=== PATIENT | female | born 1995 | race Caucasian/White ===

== ENCOUNTER 2023-03-31 20:12 | Outpatient (REF) | payer OTHER, SELFPAY ==
[2023-04-07 00:07] LABS: Age Gdln ACOG Testing Note (.); IGP, rfx Aptima HPV ASCU Note (.)
== END 2023-03-31 20:13 | disposition home or self-care (01) ==
LOC: LAB 20:12
PROVIDERS: PCP Family Medicine; Visit Provider Obstetrics & Gynecology
DX: Z01.419 Encounter for gynecological examination (general) (routine) without abnormal findings (principal)
CPT/HCPCS: G0145

== ENCOUNTER 2023-06-05 12:39 | Outpatient (OUT) | payer OTHER, SELFPAY ==
--- NOTE | 2023-06-05 13:20 | CA_ITS ---
Patient: ILIR DANIEL Exam Date: 06/05/2023 : 1995 Gender:F Ordering : DR Steve Redd . Admission #: [id number] Family : Order #: [id number] CLICK HERE TO VIEW EXAM ECHOCARDIOGRAM REPORT PROCEDURE: CA ECHO DOPPLER COMPLETE INDICATIONS: CHEST PAIN COMPARISON: None. DESCRIPTION: COMPLETE ECHOCARDIOGRAM Real-time transthoracic echocardiography with 2D, M-mode, spectral and color flow Doppler performed. QUALITY: Technical quality was good. LEFT VENTRICLE: Normal chamber size. Normal left ventricular wall thickness. Normal systolic function. LV EF: Normal left ventricular ejection fraction, (>55%). DIASTOLIC: Normal diastolic function. ATRIAL SEPTUM: Visually appears intact. LEFT ATRIUM: Normal chamber size. RIGHT ATRIUM: Normal chamber size. RIGHT VENTRICLE: Normal chamber size. Normal right ventricular systolic function. TRICUSPID VALVE: Normal mobility and thickness. No stenosis with mild regurgitation. No evidence of pulmonary hypertension. RVSP 24 mmHg MITRAL VALVE: Normal mobility and thickness. No evidence of mitral valve stenosis. There is no mitral annular calcification. Trivial mitral regurgitation. AORTIC VALVE: Normal trileaflet appearance. No visible sclerosis. Normal leaflet mobility. No evidence of aortic valve stenosis. Trivial aortic regurgitation. AORTIC ROOT: Normal diameter and appearance. PULMONIC VALVE: Normal thickness and mobility. No stenosis. No regurgitation. PERICARDIUM: No evidence of pericardial effusion. IVC: Collapses with inspirations. PLEURA: CONCLUSION: 1. Normal ventricular function. LVEF is 55 to 60%. 2. No significant valvular dysfunction. 3. Normal right-sided pressures. 4. No pericardial effusion. Adult Echocardiography Procedure Report Left Ventricle LVEDD (3.7 - 5.6 cm): 5.04 cm LVESD (2.2 - 4.0 cm): 3.22 cm LVIVS thickness (0.6 - 1.2 cm): 0.72 cm LVPW thickness (0.5 - 1.0 cm): 0.80 cm e': 0.22 m/s E - e': 4.59 LVOT Max Gradient: 6.06 mm[Hg] LVOT Area (cm2): 1.23 m/s Peak Velocity (LVOT): 1.23 m/s Mean Velocity (LVOT): 0.88 m/s LVOT Diameter 1.93 cm Left Atrium LA Volume Index (2D A2C): 25.48 ml/m2 Left Atrium Systolic Dimension: 3.84 cm Mitral Valve MV E to A Ratio: 1.79, 1.82 Mitral Valve A-Wave Peak Velocity: 0.56 m/s Mitral Valve E-Wave Peak Velocity: 1.02 m/s Right Ventricle Aorta AO Root Diam: 2.67 cm Ascending Ao Diam: 2.36 cm Aortic Valve AoV Area ([place]): 2.23 cm2, 2.23 cm2 AoV Area (VTI): 2.00 cm2, 2.00 cm2 Peak Velocity(Antegrade Flow): 1.61 m/s Peak Gradient(Antegrade Flow): 10.43 mm[Hg] Mean Velocity(Antegrade Flow): 1.18 m/s Mean Gradient(Antegrade Flow): 6.21 mm[Hg] Velocity Time Integral: 34.52 cm Tricuspid Valve Peak Velocity (Regurgitant Flow): 2.24 m/s, 2.29 m/s Pulmonic Valve Peak Velocity: 1.03 m/s Peak Gradient: 4.27 mm[Hg], 4.19 mm[Hg] Right Atrium Right Atrium Systolic Pressure: 45.98 ml, 45.98 ml Dictated by: Peyman Adhikari M.D. on 06/05/2023 at 17:25 Approved by: Peyman Adhikari M.D. on 06/05/2023 at 17:27
== END 2023-06-05 12:40 | disposition home or self-care (01) ==
LOC: CARD 12:40
PROVIDERS: PCP Family Medicine; Visit Provider Family Medicine
DX: R07.9 Chest pain, unspecified (principal)
CPT/HCPCS: 93306

== ENCOUNTER 2023-07-19 11:28 | Emergency (ER) | payer OTHER, SELFPAY ==
[2023-07-19 11:32] VITALS: BP 161/109; PULSE 97; RESP 18; TEMP 37.2; O2SAT 97; BMI 29.2
--- NOTE | 2023-07-19 11:53 | ECG_ITS ---
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
[2023-07-19 12:15] LABS: Basophils Absolute Auto 0.1 10^3/uL (0.0-0.1); Basophils Percent Auto 0.8 % (0.2-2.0); Eosinophils Absolute Auto 0.1 10^3/uL (0.0-0.7); Eosinophils Percent Auto 1.4 % (0.9-7.0); Hematocrit 41.1 % (36.0-48.0); Hemoglobin 13.2 g/dL (12.0-16.0); Immature Granulocytes Abs Auto 0.02 10^3/uL (0.00-0.03); Immature Granulocytes Pct Auto 0.3 % (0.0-0.5); Lymphocytes Absolute Auto 0.7 10^3/uL (1.2-3.8); Lymphocytes Percent Auto 8.9 % (20.5-60.0); Mean Corpuscular HGB Conc 32.1 g/dL (29.9-35.2); Mean Corpuscular Hemoglobin 27.8 pg (26.7-34.0); Mean Corpuscular Volume 86.7 fL (81.0-99.0); Mean Platelet Volume 10.2 fL (9.5-13.5); Monocytes Absolute Auto 0.4 10^3/uL (0.3-0.8); Monocytes Percent Auto 5.7 % (1.7-12.0); Neutrophils Absolute Auto 6.5 10^3/uL (1.4-6.5); Neutrophils Percent Auto 82.9 % (43.0-75.0); Platelet Count 198 10^3/uL (150-450); Red Blood Count 4.74 10^6/uL (4.20-5.40); Red Cell Distribution Width 12.5 % (11.0-15.0); White Blood Count 7.8 10^3/uL (4.0-11.0)
[2023-07-19 12:23] LABS: Cannabinoid Screen Urine POSITIVE (NEGATIVE); Cocaine Screen Urine NEGATIVE (NEGATIVE); Phencyclidine Screen Urine NEGATIVE (NEGATIVE)
[2023-07-19 12:24] LABS: Amphetamine Screen Urine POSITIVE (NEGATIVE); Barbiturates Screen Urine NEGATIVE (NEGATIVE); Benzodiazepines Screen Urine NEGATIVE (NEGATIVE); Buprenorphine Screen Urine NEGATIVE (NEGATIVE); Methadone Screen Urine NEGATIVE (NEGATIVE); Methamphetamines Screen Urine NEGATIVE (NEGATIVE); Opiate Screen Urine NEGATIVE (NEGATIVE); Oxycodone Screen Urine NEGATIVE (NEGATIVE); Tricyclic Antidepressant Urine NEGATIVE (NEGATIVE)
[2023-07-19 12:25] LABS: HCG Qualitative NEGATIVE (NEGATIVE)
[2023-07-19 12:30] LABS: Alanine Aminotransferase 16 U/L (14-59); Albumin Globulin Ratio 0.9; Albumin Level 3.7 g/dL (3.4-5.0); Alkaline Phosphatase 61 U/L (46-116); Anion Gap 13.8; Aspartate Amino Transferase 12 U/L (15-37); BUN Creatinine Ratio 12.9; Bilirubin Total 1.6 mg/dL (0.2-1.0); Calcium 8.8 mg/dL (8.5-10.1); Carbon Dioxide 28.9 mmol/L (21.0-32.0); Chloride 101 mmol/L (98-107); Estimated GFR (African America >60 (>=60); Estimated GFR (Non-African Ame >60 (>=60); Glucose 90 mg/dL (74-106); Potassium 3.7 mmol/L (3.5-5.1); Sodium 140 mmol/L (136-145); Total Protein 7.7 g/dL (6.4-8.2)
[2023-07-19 12:31] LABS: Acetaminophen <2.0 ug/mL (10.0-30.0); Ethanol <3 mg/dL; Salicylate <2.8 mg/dL (<=19.9)
[2023-07-19 14:32] VITALS: BP 126/88; PULSE 80; RESP 18; O2SAT 98
--- NOTE | 2023-07-19 17:23 | ED.GENADUL1 ---
HPI - General Adult General Chief complaint: Psychiatric Symptoms Stated complaint: SUICIDAL Time Seen by Provider: 07/19/23 11:52 Source: patient Mode of arrival: law enforcement Limitations: no limitations History of Present Illness HPI narrative: The patient presenting to the ER for possible suicidal ideation although it seemed like she was having a fight with her boyfriend when the police presented and she said that the police make her wants to kill herself The patient denies being suicidal in the ER and she does not have any plan She was arguing with her boyfriend the past proper parenting Related Data Allergies Allergy/AdvReac Type Severity Reaction Status Date / Time No Known Drug Allergies Allergy Verified 07/19/23 11:35 Review of Systems ROS Status of ROS 10 or more systems reviewed and unremarkable except as noted in history and below PFS PFS Social History Smoking status: Never smoker Exam Narrative Exam Narrative: Nurses notes and vital signs reviewed and patient is not hypoxic. General: Well-appearing and in no apparent distress. Skin: Warm, dry, no pallor noted. No rash. Head: Normocephalic, atraumatic. Neck: Supple, non-tender. Eye: Pupils are equal, round and EOMI. No scleral icterus. Ears, Nose, Mouth, and Throat: TM are clear, no nasal mucosal hypertrophy. Oral mucosa is moist, no posterior oropharynx erythema, uvula is mid-line Cardiovascular: Regular Rate and Rhythm without murmur, gallop or rub. Respiratory: No accessory muscle use or respiratory distress. Lungs are clear to auscultation, no wheezing, rales or rhonchi Chest Wall: no tenderness Back: No midline thoracic or lumbar vertebral tenderness. No CVA tenderness Musculoskeletal: normal ROM, no calf or popliteal tenderness, no lower extremity edema/swelling GI: Abdomen is soft, non-distended. Normal bowel sounds. No masses appreciated. No tenderness to palpation. No rebound, guarding, or rigidity noted. Neurological: A&O x4. No cranial nerve dysfunction observed. No truncal ataxia. Moves all extremities. Sensation intact. Psychiatric: Cooperative and interactive. Normal mood and affect. Constitutional Vital Signs, click to edit/add: Last Vital Signs Temp 98.9 F 07/19/23 11:32 Pulse 80 07/19/23 14:32 Resp 18 07/19/23 14:32 BP 126/88 07/19/23 14:32 Pulse Ox 98 12/03/23 14:32 O2 Del Method Room Air 07/19/23 11:32 Course Vital Signs Vital signs: Vital Signs Temperature 98.9 F 07/19/23 11:32 Pulse Rate 97 H 07/19/23 11:32 Respiratory Rate 18 07/19/23 11:32 Blood Pressure 161/109 H 07/19/23 11:32 Pulse Oximetry 97 07/19/23 11:32 Oxygen Delivery Method Room Air 07/19/23 11:32 Temperature 98.9 F 07/19/23 11:32 Pulse Rate 80 07/19/23 14:32 Respiratory Rate 18 07/19/23 14:32 Blood Pressure 126/88 07/19/23 14:32 Pulse Oximetry 98 07/19/23 14:32 Oxygen Delivery Method Room Air 07/19/23 11:32 Medical Decision Making MDM Narrative Medical decision making narrative: The patient EKG was showing sinus rhythm with a heart rate of [address] elevation or depression CBC and chemistry showed no acute pathology and the patient was evaluated by psychiatry after she was medically clear Right now the patient is not suicidal she have a friend Kiara who is coming over to spend the time with her The patient was discharged with a safety plan and she was instructed that she will be following up with the [facility] psychiatry as outpatient as well I spoke with the patient and she is agreeable with the plan Patient the patient is to follow up with primary care physician in next 2-3 days or to return to the emergency department should any of the signs or symptoms worsen or new symptoms develop. The patient agrees with the following Diagnosis and Treatment plan and the patient will be discharged home. Lab Data Labs: Lab Results 07/19/23 07/19/23 Range/Units 12:00 12:07 WBC 7.8 (4.0-11.0) 10^3/uL RBC 4.74 (4.20-5.40) 10^6/uL Hgb 13.2 (12.0-16.0) g/dL Hct 41.1 (36.0-48.0) % MCV 86.7 (81.0-99.0) fL MCH 27.8 (26.7-34.0) pg MCHC 32.1 (29.9-35.2) g/dL RDW 12.5 (11.0-15.0) % Plt Count 198 (150-450) 10^3/uL MPV 10.2 (9.5-13.5) fL Neut % (Auto) 82.9 H (43.0-75.0) % Lymph % (Auto) 8.9 L (20.5-60.0) % Sequoyah % (Auto) 5.7 (1.7-12.0) % Eos % (Auto) 1.4 (0.9-7.0) % Baso % (Auto) 0.8 (0.2-2.0) % Neut # (Auto) 6.5 (1.4-6.5) 10^3/uL Lymph # (Auto) 0.7 L (1.2-3.8) 10^3/uL Sequ[place]ah # (Auto) 0.4 (0.3-0.8) 10^3/uL Eos # (Auto) 0.1 (0.0-0.7) 10^3/uL Baso # (Auto) 0.1 (0.0-0.1) 10^3/uL Abs Immat Gran (auto) 0.02 (0.00-0.03) 10^3/uL Imm/Tot Granulo (auto) 0.3 (0.0-0.5) % Sodium 140 (136-145) mmol/L Potassium 3.7 (3.5-5.1) mmol/L Chloride 101 (98-107) mmol/L Carbon Dioxide 28.9 (21.0-32.0) mmol/L Anion Gap 13.8 BUN 12.0 (7.0-18.0) mg/dL Creatinine 0.93 (0.55-1.02) mg/dL Est GFR ( Amer) >60 (>=60) Est GFR (Non-Af Amer) >60 (>=60) BUN/Creatinine Ratio 12.9 Glucose 90 (74-106) mg/dL Calcium 8.8 (8.5-10.1) mg/dL Total Bilirubin 1.6 H (0.2-1.0) mg/dL AST 12 L (15-37) U/L ALT 16 (14-59) U/L Alkaline Phosphatase 61 (46-116) U/L Total Protein 7.7 (6.4-8.2) g/dL Albumin 3.7 (3.4-5.0) g/dL Globulin 4.0 g/dL Albumin/Globulin Ratio 0.9 Serum HCG, Qual Negative (NEGATIVE) Salicylates <2.8 (<=19.9) mg/dL Urine Opiates Screen Negative (NEGATIVE) Ur Buprenorphine Scrn Negative (NEGATIVE) Ur Oxycodone Screen Negative (NEGATIVE) Urine Methadone Screen Negative (NEGATIVE) Acetaminophen <2.0 L (10.0-30.0) ug/mL Ur Barbiturates Screen Negative (NEGATIVE) U Tricyclic Antidepress Negative (NEGATIVE) Ur Phencyclidine Scrn Negative (NEGATIVE) Ur Amphetamines Screen Positive A (NEGATIVE) U Methamphetamines Scrn Negative (NEGATIVE) U Benzodiazepines Scrn Negative (NEGATIVE) Urine Cocaine Screen Negative (NEGATIVE) U Cannabinoids Screen Positive A (NEGATIVE) Ethanol Quant <3 mg/dL Discharge Plan Discharge Chief Complaint: Psychiatric Symptoms Clinical Impression: Stress, Suicidal ideation Patient Disposition: Home, Self-Care Time of Disposition Decision: 14:16 Condition: Good Instructions: Stress (ED), Suicide Prevention (ED) Stand Alone Forms: Portal Instructions Referrals: Steve Redd MD [Primary Care Provider] - 1 week Discharge Date/Time: 07/19/23 14:34
== END 2023-07-19 14:34 | disposition home or self-care (01) ==
PROVIDERS: Emergency Provider Emergency Medicine; PCP Family Medicine
DX: R45.851 Suicidal ideations (principal); F43.9 Reaction to severe stress, unspecified
CPT/HCPCS: 36415; 80053; 80179; 80307; 80320; 80329; 84703; 85025; 93005; 99284

== ENCOUNTER 2023-10-07 10:29 | Outpatient (OUT) | payer OTHER, SELFPAY ==
--- OUTSIDE RECORDS SUMMARY | 2023-10-07 10:33 | XMS_ITS | CCD ---
Author Name Unknown Address [facility] [address] [place] [address] Organization [facility] Care Team Providers Care Fulfillment Specialist Name Role Phone GRACIE KAY Unavailable Unavailable ANITA MERRILL Unavailable Unavailable Emilee Khan Unavailable CRESENCIO Khan Attending Provider Emilee Khan Attending Unavailable Emilee Khan Admitting Unavailable RAHUL, DR BOWMAN Admitting Unavailable RAHUL, DR BOWMAN Attending Unavailable CORNELIAY, DR BOWMAN Primary Care Unavailable RAHUL, DR BOWMAN Consulting Unavailable RAHUL, DR BOWMAN Admitting Unavailable RAHUL, DR BOWMAN Attending Unavailable RAHUL, DR BOWMAN Primary Care Unavailable RAHUL, DR BOWMAN Admitting Unavailable RAHUL, DR BOWMAN Attending Unavailable RAHUL, DR BOWMAN Primary Care Unavailable RAHUL, DR BOWMAN Consulting Unavailable RAHUL, DR BOWMAN Admitting Unavailable RAHUL, DR BOWMAN Attending Unavailable RAHUL, DR BOWMAN Primary Care Unavailable RAHUL, DR BWOMAN Consulting Unavailable RAHUL, DR BOWMAN Admitting Unavailable RAHUL, DR BOWMAN Attending Unavailable HOY, DR BOWMAN Primary Care Unavailable HODR GRACIE Yañez Admitting Unavailable RAHUL, DR BOWMAN Attending Unavailable RAHUL, DR BOWMAN Primary Care Unavailable DR GRACIE KAY Consulting Unavailable RAHUL, DR BOWMAN Admitting Unavailable RAHUL, DR BOWMAN Attending Unavailable RAHUL, DR BOWMAN Primary Care Unavailable RAHUL, DR BOWMAN Consulting Unavailable TYLERDR JACKIE ROSS Admitting Unavailable TYLER, DR MEJIA Attending Unavailable RAHUL, DR BOWMAN Primary Care Unavailable TYLER, DR MEJIA Consulting Unavailable RAHUL, DR BOWMAN Admitting Unavailable RAHUL, DR BOWMAN Attending Unavailable DR GRACIE KAY Primary Care Unavailable DR GRACIE KAY Consulting Unavailable DR GRACIE KAY Admitting Unavailable DR GRACIE KAY Attending Unavailable DR GRACIE KAY Primary Care Unavailable DR GRACIE KAY Consulting Unavailable Medications Current Medications Medication Drug Class(es) Dates Sig (Normalized) Sig (Original) azithromycin 500 mg oral tablet (2 sources) Macrolide Antimicrobial Start: 07-17-2022 take 2 tablets by mouth once Azithromycin 500 MG 2 tablet Orally once for 1 day Jul, Active Levonorgestrel (2 sources) Progestin, Progestin-containin g Intrauterine Device Allegra Active Problems Active Problems Problem Classification Problem Date Documented Da te Episodic/Chronic Cardiac dysrhythmias (4 sources) Bradycardia, unspecified; Translations: [BRADYCARDIA UNSPECIFIED] Onset: 09-02-2022 Episodic Deficiency and other anemia (5 sources) Anemia, unspecified; Translations: [ANEMIA UNSPECIFIED] Onset: 11-18-2021 Episodic Diabetes mellitus without complication (1 source) Other abnormal glucose; Translations: [OTHER ABNORMAL GLUCOSE] Onset: 09-08-2022 Episodic Headache; including migraine (1 source) Migraine, unspecified, not intractable, without status migrainosus; Translations: [MIGRAINE UNS NOT INTRACT W/O SM] Onset: 08-29-2022 Chronic Malaise and fatigue (1 source) Other fatigue; Translations: [OTHER FATIGUE] Onset: 08-29-2022 Episodic Nausea and vomiting (1 source) Nausea; Translations: [Nausea] Onset: 02-10-2018 Episodic Nonspecific chest pain (4 sources) Chest pain, unspecified; Translations: [CHEST PAIN UNSPECIFIED] Onset: 09-19-2022 Episodic Other non-traumatic joint disorders (4 sources) Pain in left knee; Translations: [PAIN IN LEFT KNEE] Onset: 08-27-2022 Episodic Other screening for suspected conditions (not mental disorders or infectious disease) (9 sources) Encounter for screening for malignant neoplasm of rectum; Translations: [Encounter for screening for malignant neoplasm of cervix] Onset: 03-24-2022 Episodic Residual codes; unclassified (4 sources) Idiopathic hypersomnia with long sleep time; Translations: [IDIO HYPERSOMNIA W/LONG SLEEP TIME] Onset: 05-06-2022 Chronic Residual codes; unclassified (4 sources) Obstructive sleep apnea (adult) (pediatric); Translations: [OBSTRUCTIVE SLEEP APNEA] Onset: 04-15-2022 Chronic Residual codes; unclassified (2 sources) High risk heterosexual behavior; Translations: [High risk heterosexual behavior] Onset: 07-17-2022 Episodic Urinary tract infections (1 source) Tubulo-interstitial nephritis, not specified as acute or chronic; Translations: [Tubulo-interstitia l nephritis, not specified as acute or chronic] Onset: 02-10-2018 Episodic Past or Other Problems Problem Classification Problem Date Documented Date Episodic/Chronic Immunizations and screening for infectious disease (1 source) Encounter for screening for human papillomavirus (HPV); Translations: [ENC SCREENING HUMAN PAPILLOMAVIRUS] Onset: 03-26-2022 Episodic Results Test Name Value Interpretation Reference Range Facility ECHOCARDIO M/2D COMPLETEon 0 09-19-2022 ECHOCARDIO M/2D COMPLETE Patient: ILIR DANIEL Exam Date: 09/19/2022 : 1995 Gender:F Ordering : DR GRACIE KAY . Admission #: [id number] Family : Order #: [id number] CLICK HERE TO VIEW EXAM ECHOCARDIOGRAM REPORT PROCEDURE: CARDIO PULMONARY ECHOCARDIO M/2D COMP INDICATIONS: Chest pain COMPARISON: None. DESCRIPTION: COMPLETE ECHOCARDIOGRAM Real-time transthoracic echocardiography with 2D, M-mode, spectral and color flow Doppler performed. QUALITY: Technical quality was good. 65 184# BP 128/82 LEFT VENTRICLE: Normal chamber size. Normal left ventricular wall thickness. Normal systolic function. LV EF: Normal left ventricular ejection fraction, (>55%). DIASTOLIC: Normal diastolic function. ATRIAL SEPTUM: Visually appears intact. LEFT ATRIUM: Normal chamber size. RIGHT ATRIUM: Normal chamber size. RIGHT VENTRICLE: Normal chamber size. Normal right ventricular systolic function. TRICUSPID VALVE: Normal mobility and thickness. No stenosis with trivial regurgitation. No evidence of pulmonary hypertension. RVSP 22 mmHg MITRAL VALVE: Mildly thickened with normal mobility. No evidence of mitral valve stenosis. There is no mitral annular calcification. Trivial mitral regurgitation. AORTIC VALVE: Normal trileaflet appearance. No visible sclerosis. Normal leaflet mobility. No evidence of aortic valve stenosis. No aortic regurgitation. AORTIC ROOT: Normal diameter and appearance. PULMONIC VALVE: Normal thickness and mobility. No stenosis. Trivial regurgitation. PERICARDIUM: No evidence of pericardial effusion. IVC: Collapses with inspirations. IVC is normal in size. PLEURA: CONCLUSION: 1. Normal ventricular function. LVEF is 55 to 60%. 2. No significant valvular dysfunction. 3. Normal right-sided pressures. 4. No critical effusion. Adult Echocardiography Procedure Report Left Ventricle LVEDD (3.7 - 5.6 cm): 5.17 cm LVESD (2.2 - 4.0 cm): 3.46 cm LVIVS thickness (0.6 - 1.2 cm): 0.91 cm LVPW thickness (0.5 - 1.0 cm): 0.68 cm e': 0.19 m/s E - e': 4.66 LVOT Max Gradient: 3.71 mm[Hg] Peak Velocity (LVOT): 0.96 m/s Mean Velocity (LVOT): 0.65 m/s LVOT Diameter 2.15 cm Left Ventricular Ejection Fraction: 55-60 % Left Atrium Left Atrium Systolic Dimension: 3.93 cm Mitral Valve MV E to A Ratio: 3.23 Mitral Valve A-Wave Peak Velocity: 0.27 m/s Mitral Valve E-Wave Peak Velocity: 0.89 m/s Right Ventricle Aorta AO Root Diam: 2.80 cm Aortic Valve AoV Area (Peak Peewee): 2.89 cm2, 2.89 cm2 Peak Velocity(Antegrade Flow): 1.21 m/s Peak Gradient(Antegrade Flow): 5.83 mm[Hg] Tricuspid Valve Peak Velocity (Regurgitant Flow): 2.18 m/s Peak Velocity: 0.74 m/s Pulmonic Valve Mean Gradient: 2.96 mm[Hg], 2.63 mm[Hg] Mean Velocity: 0.81 m/s, 0.75 m/s Peak Velocity: 1.09 m/s, 1.09 m/s Peak Gradient: 4.76 mm[Hg], 4.76 mm[Hg] Right Atrium Right Atrium Systolic Pressure: 41.01 ml, 41.01 ml Dictated by: Peyman Ahdikari M.D. on 2022 at 18:58 Approved by: Peyman Adhikari M.D. on 2022 at 19:01 Normal [facility] INSULINon 09-03-2022 Insulin 7.3 uIU/mL Normal 2.6-24.9 [facility] Comment on above: Performed By: #### I NSULIN #### [facility] [address] [address] [address] Kwasi Roblero CBC AUTO DIFFon 09-02-2022 BASO # 0.1 103/ul Normal 0.0-0.1 [facility] Comment on above: Performed By: #### C BC #### [facility] [address] [place] [address] Dr. Kwasi Roblero Basophils/100 WBC (Bld) 0.9 % Normal 0.2-2.0 [facility] Comment on above: Performed By: #### C BC #### [facility] [address] [place] [address] Dr. Kwasi Roblero EO # 0.2 103/ul Normal 0.0-0.7 [facility] Comment on above: Performed By: #### C BC #### [facility] [address] [place] [address] Dr. Kwasi Roblero Eosinophils/100 WBC (Bld) 2.3 % Normal 0.9-7.0 [facility] Comment on above: Performed By: #### C BC #### [facility] [address] [place] [address] Dr. Kwasi Roblero Erythrocyte distribution width (RBC) [Ratio] 12.6 % Normal 11.0-15.0 [facility] Comment on above: Performed By: #### C BC #### [facility] [address] [place] [address] Dr. Kwasi Roblero Hematocrit (Bld) [Volume fraction] 39.3 % Normal 36.0-48.0 [facility] Comment on above: Performed By: #### C BC #### [facility] [address] [place] [address] Dr. Kwasi Roblero Hemoglobin (Bld) [Mass/Vol] 12.7 g/dL Normal 12.0-16.0 [facility] Comment on above: Performed By: #### C BC #### [facility] [address] [place] [address] Dr. Kwasi Roblero IG # 0.01 10e3/ul Normal 0.00-0.03 [facility] Comment on above: Performed By: #### C BC #### [facility] [address] [place] [address] Dr. Kwasi Roblero IG % 0.1 % Normal 0.0-0.5 [facility] Comment on above: Performed By: #### C BC #### [facility] [address] [place] [address] Dr. Kwasi Roblero LYMPH # 1.8 103/ul Normal 1.2-3.8 [facility] Comment on above: Performed By: #### C BC #### [facility] [address] [place] [address] Dr. Kwasi Roblero Lymphocytes/100 WBC (Bld) 25.9 % Normal 20.5-60.0 [facility] Comment on above: Performed By: #### C BC #### [facility] [address] [place] [address] Dr. Kwasi Roblero MANUAL DIFF REQ NO Normal [facility] Comment on above: Performed By: #### C BC #### [facility] [address] [place] [address] Dr. Kwasi Roblero MCH (RBC) [Entitic mass] 27.0 pg Normal 26.7-34.0 [facility] Comment on above: Performed By: #### C BC #### [facility] [address] [place] [address] Dr. Kwasi Roblero MCHC (RBC) [Mass/Vol] 32.3 g/dL Normal 29.9-35.2 [facility] Comment on above: Performed By: #### C BC #### [facility] [address] [place] [address] Dr. Kwasi Roblero MCV (RBC) [Entitic vol] 83.4 fL Normal 81.0-99.0 [facility] Comment on above: Performed By: #### C BC #### [facility] [address] [place] [address] Dr. Kwasi Roblero MONO # 0.7 103/ul Normal 0.3-0.8 [facility] Comment on above: Performed By: #### C BC #### [facility] [address] [address] [address] Kwasi Roblero Monocytes/100 WBC (Bld) 9.5 % Normal 1.7-12.0 [facility] Comment on above: Performed By: #### C BC #### [facility] [address] [address] [address] Kwasi Roblero NEUT # 4.2 103/ul Normal 1.4-6.5 [facility] Comment on above: Performed By: #### C BC #### [facility] [address] [place] [address] Dr. Kwasi Roblero Neutrophils/100 WBC (Bld) 61.3 % Normal 43.0-75.0 [facility] Comment on above: Performed By: #### C BC #### [facility] [address] [place] [address] Dr. Kwasi Roblero Platelet mean volume (Bld) [Entitic vol] 10.8 fL Normal 9.5-13.5 [facility] Comment on above: Performed By: #### C BC #### [facility] [address] [place] [address] Dr. Kwasi Roblero PLT 240 103/ul Normal 150-450 [facility] Comment on above: Performed By: #### C BC #### [facility] [address] [place] [address] Dr. Kwasi Roblero RBC 4.71 106/ul Normal 4.20-5.40 [facility] Comment on above: Performed By: #### C BC #### [facility] [address] [place] [address] Dr. Kwasi Roblero WBC 6.9 103/ul Normal 4.0-11.0 [facility] Comment on above: Performed By: #### C BC #### [facility] [address] [place] [address] Dr. Kwasi Roblero FREE THYROXINE INDEX T7on FTI 2.80 Normal 1.30-4.50 [facility] Comment on above: Performed By: #### T SH, LIPID, T7, CMP ####[facility] [address] [place], [place] [address]VxErica Roblero T3U 35.0 % Normal 30.0-39.0 [facility] Comment on above: Performed By: #### T SH, LIPID, T7, CMP ####[facility] [address] [place], [place] [address]MsErica Roblero T4 [Mass/Vol] 8.00 ug/dL Normal 4.80-13.90 [facility] Comment on above: Performed By: #### T SH, LIPID, T7, CMP ####[facility] [address] [place], [place] [address]JjErica Roblero GLYCOHEMOGLOBIN A1Con 2022 ADA RECOMMENDATION SEE BELOW Normal [facility] Comment on above: Result Comment: ADA RECOMMENDED LIMIT 4.0 - 6.0 ADA THERAPEUTIC TARGET < 7.0 ACTION SUGGESTED > 7.0 Performed By: #### A 1C #### [facility] [address] [address] [address] Kwasi Roblero Glucose [Mass/Vol] 94 mg/dL Normal [facility] Comment on above: Performed By: #### A 1C #### [facility] [address] [address] [address] Kwasi Roblero HbA1c (Bld) [Mass fraction] 4.9 % Normal 4.5-6.2 [facility] Comment on above: Performed By: #### A 1C #### [facility] [address] [address] [address] Kwasi Roblero IRONon 09-02-2022 Iron [Mass/Vol] 47.0 ug/dL Critically low 50.0-170.0 [facility] Comment on above: Performed By: #### I EDUARD ####[facility] [address] [address]Dr. Kwasi Roblero LIPID PROFILEon 09-02-2022 CHOL-HDL RATIO NORM SEE BELOW Normal [facility] Comment on above: Result Comment: 3.3 - 4.4 LOW RISK 4.4 - 7.1 AVERAGE RISK 7.1 - 11.0 MODERATE RISK >11.0 HIGH RISK Performed By: #### T SH, LIPID, T7, CMP ####[facility] [address] [id number] Kwasi Roblero Cholesterol [Mass/Vol] 129 mg/dL Normal <=200 [facility] Comment on above: Performed By: #### T SH, LIPID, T7, CMP ####[facility] [address] [id number][address] Kwasi Roblero Cholesterol in HDL [Mass/Vol] 36 mg/dL Critically low 40-60 [facility] Comment on above: Performed By: #### T SH, LIPID, T7, CMP ####[facility] [address] [address]Dr. Kwasi Roblero Cholesterol in LDL [Mass/Vol] 79.2 mg/dL Normal [facility] Comment on above: Performed By: #### T SH, LIPID, T7, CMP ####[facility] [id number] [address]Dr. Kwasi Roblero Cholesterol.total/Cho lesterol in HDL [Mass ratio] 3.6 {ratio} Normal [facility] Comment on above: Performed By: #### T SH, LIPID, T7, CMP ####[facility] [address] [address]Dr. Kwasi Roblero HDL NORMAL > or = 60 mg/dl - LO W CARDIOVASCULAR RISK <40 mg/dl - HIGH CARDIOVASCULAR RISK Normal [facility] Comment on above: Performed By: #### T SH, LIPID, T7, CMP ####[facility] [address] [address]Dr. Kwasi Roblero LDL CALC NORMAL SEE BELOW Normal [facility] Comment on above: Result Comment: <100 mg/dl OPTIMAL 100 - 129 mg/dl NEAR OR ABOVE OPTIMAL 130 - 159 mg/dl BORDERLINE HIGH 160 - 189 mg/dl HIGH >190 mg/dl VERY HIGH Performed By: #### T SH, LIPID, T7, CMP ####[facility] [address] [address]Dr. Kwasi Roblero Triglyceride [Mass/Vol] 69 mg/dL Normal <=150 [facility] Comment on above: Performed By: #### T SH, LIPID, T7, CMP ####[facility] [address] [place], [place] [address]OhDr. Kwasi Roblero VLDL CALC 13.8 mg/dL Normal [facility] Comment on above: Performed By: #### T SH, LIPID, T7, CMP ####[facility] [address] [id number] Kwasi Roblero PROF 14(COMP METB)on 023 Albumin [Mass/Vol] 3.8 g/dL Normal 3.4-5.0 [facility] Comment on above: Performed By: #### T SH, LIPID, T7, CMP #### [facility] [address] [address] [address] Kwasi Roblero Albumin/Globulin [Mass ratio] 0.9 {ratio} Normal [facility] Comment on above: Performed By: #### T SH, LIPID, T7, CMP #### [facility] [address] [address] [address] Kwasi Roblero ALP [Catalytic activity/Vol] 64 U/L Normal 46-116 [facility] Comment on above: Performed By: #### T SH, LIPID, T7, CMP #### [facility] [address] [address] [address] Kwasi Roblero ALT [Catalytic activity/Vol] 17 U/L Normal 14-59 [facility] Comment on above: Performed By: #### T SH, LIPID, T7, CMP #### [facility] [address] [address] [address] Kwasi Roblero Anion gap [Moles/Vol] 11.6 mmol/L Normal [facility] Comment on above: Performed By: #### T SH, LIPID, T7, CMP #### [facility] [address] [address] [address] Kwasi Roblero AST [Catalytic activity/Vol] 14 U/L Critically low 15-37 [facility] Comment on above: Performed By: #### T SH, LIPID, T7, CMP #### [facility] [address] [address] [address] Kwasi Roblero Bilirubin [Mass/Vol] 1.0 mg/dL Normal 0.2-1.0 [facility] Comment on above: Performed By: #### T SH, LIPID, T7, CMP #### [facility] [address] [address] [address] Kwasi Roblero Calcium [Mass/Vol] 9.1 mg/dL Normal 8.5-10.1 [facility] Comment on above: Performed By: #### T SH, LIPID, T7, CMP #### [facility] [address] [place] [address] Dr. Kwasi Roblero Chloride [Moles/Vol] 105 mmol/L Normal 98-107 [facility] Comment on above: Performed By: #### T SH, LIPID, T7, CMP #### [facility] [address] [place] [address] Dr. Kwasi Roblero CO2 [Moles/Vol] 30.3 mmol/L Normal 21.0-32.[address] [facility] Comment on above: Performed By: #### T SH, LIPID, T7, CMP #### [facility] [address] [place] [address] Dr. Kwasi Roblero Creatinine [Mass/Vol] 0.87 mg/dL Normal 0.55-1.02 [facility] Comment on above: Performed By: #### T SH, LIPID, T7, CMP #### [facility] [address] [place] [address] Dr. Kwasi Roblero EGFR-AF CYMRO >60 Normal >=[address] [facility] Comment on above: Performed By: #### T SH, LIPID, T7, CMP #### [facility] [address] [place] [address] Dr. Kwasi Roblero EGFR-NON AF CYMRO >60 Normal >=60 [facility] Comment on above: Performed By: #### T SH, LIPID, T7, CMP #### [facility] [address] [place] [address] Dr. Kwasi Roblero Globulin (S) [Mass/Vol] 4.2 g/dL Normal [facility] Comment on above: Performed By: #### T SH, LIPID, T7, CMP #### [facility] [address] [address] [address] Kwasi Roblero Glucose [Mass/Vol] 88 mg/dL Normal 74-106 [facility] Comment on above: Performed By: #### T SH, LIPID, T7, CMP #### [facility] [address] [address] [address] Kwasi Roblero Potassium [Moles/Vol] 3.9 mmol/L Normal 3.5-5.1 [facility] Comment on above: Performed By: #### T SH, LIPID, T7, CMP #### [facility] [address] [address] [address] Kwasi Roblero Protein [Mass/Vol] 8.0 g/dL Normal 6.4-8.2 [facility] Comment on above: Performed By: #### T SH, LIPID, T7, CMP #### [facility] [address] [address] [address] Kwasi Roblero Sodium [Moles/Vol] 143 mmol/L Normal 136-145 [facility] Comment on above: Performed By: #### T SH, LIPID, T7, CMP #### [facility] [address] [address] [address] Kwasi Roblero Urea nitrogen [Mass/Vol] 10.0 mg/dL Normal 7.0-18.0 [facility] Comment on above: Performed By: #### T SH, LIPID, T7, CMP #### [facility] [address] [address] [address] Kwasi Roblero Urea nitrogen/Creatinine [Mass ratio] 11.5 mg/mg Normal [facility] Comment on above: Performed By: #### T SH, LIPID, T7, CMP #### [facility] [address] [address] [address] Kwasi Roblero TSHon 09-02-2022 TSH 1.776 uIU/mL Normal 0.358-3.740 [facility] Comment on above: Performed By: #### T SH, LIPID, T7, CMP ####[facility] [address] [address]DrErica Roblero OCC BLD IMMUNO SCREENon OCCULT BLOOD Negative Normal NEGATIVE [facility] Comment on above: Performed By: #### O BSCRN #### [facility] [address] [place], [place] [address] Dr. Kwasi Roblero Chlamydia/GC/Trich NAAon Chlamydia Trachomotis, MACRINA Negative Normal Negative [facility] Comment on above: Order Comment: Reaso n for Exam High risk sexual behavior, unspecified type Performed By: #### G CCHLAMTRI #### [facility] , Neisseria Gonorrhoeae, MACRINA Negative Normal Negative [facility] Comment on above: Order Comment: Reaso n for Exam High risk sexual behavior, unspecified type Performed By: #### G CCHLAMTRI #### [facility] , Trichomonas MACRINA Negative Normal Negative [facility] Comment on above: Order Comment: Reaso n for Exam High risk sexual behavior, unspecified type Result Comment: Perf ormed at: =G - [facility] [address] [id number] Bill Checker: Mariana Castro MD, Phone: [phone] PERFORMED BY: [facility] [address] [place] [address] PATHOLOGIST SCRUBBER MACHINE TENDER JIMI MCKINNEY M.D. Performed By: #### G CCHLAMTRI #### [facility] , PAP ACOG PANEL 2: 20 to 28on 03-27-2022 . . Normal [facility] Comment on above: Performed By: #### [id number] ####[facility] [address] [address]Dr. Kwasi Roblero Age Gdln ACOG Testing - [facility] Comment on above: Performed By: #### [id number] ####[facility] [address] [place], [place] [address]HqErica Roblero DIAGNOSIS: Comment Normal [facility] Comment on above: Result Comment: NEGA TIVE FOR INTRAEPITHELIAL LESION OR MALIGNANCY. Performed By: #### [id number] ####[facility] [address] [place] [address]Dr. Kwasi Roblero Methodology: Comment Normal [facility] Comment on above: Result Comment: This liquid based ThinPrep(R) pap test was screened with the use of an image guided system. Performed By: #### [id number] ####[facility] [address] [place] [address] [address]Dr. Kwasi Roblero Note: Comment Normal [facility] Comment on above: Result Comment: The Pap smear is a screening test designed to aid in the detection of premalignant and malignant conditions of the uterine cervix. It is not a diagnostic procedure and should not be used as the sole means of detecting cervical cancer. Both false-positive and false-negative reports do occur. . Performed By: #### [id number] ####[place] [address]Dr. Kwasi Roblero Performed by: Comment Normal [facility] Comment on above: Result Comment: Mary Maier, Supervisory Race Car Driver (ASCP) Performed By: #### [id number] ####[facility] [address] [place], [place] [address]Dr. Kwasi Roblero Reflex Criteria: Comment Normal [facility] Comment on above: Result Comment: The HPV DNA reflex criteria were not met with this specimen result therefore, no HPV testing was performed. . Performed By: #### 4 [id number] ####[place] [address]Dr. Kwasi Roblero Specimen adequacy: Comment Normal [facility] Comment on above: Result Comment: Sati sfactory for evaluation. Endocervical and/or squamous metaplastic cells (endocervical component) are present. Performed By: #### [id number] ####[facility] [address] [place], [place] [address]DrErica Roblero CBC AUTO DIFFon 11-18-2021 BASO # 0.1 103/ul Normal 0.0-0.1 [facility] Comment on above: Performed By: #### C BC #### [facility] [address] [place] [address] Dr. Kwasi Roblero Basophils/100 WBC (Bld) 0.4 % Normal 0.2-2.0 [facility] Comment on above: Performed By: #### C BC #### [facility] [address] [place] [address] Dr. Kwasi Robleor EO # 0.2 103/ul Normal 0.0-0.7 [facility] Comment on above: Performed By: #### C BC #### [facility] [address] [place] [address] Dr. Kwasi Roblero Eosinophils/100 WBC (Bld) 1.5 % Normal 0.9-7.0 [facility] Comment on above: Performed By: #### C BC #### [facility] [address] [place] [address] Dr. Kwasi Roblero Erythrocyte distribution width (RBC) [Ratio] 12.8 % Normal 11.0-15.0 [facility] Comment on above: Performed By: #### C BC #### [facility] [address] [place] [address] Dr. Kwasi Roblero Hematocrit (Bld) [Volume fraction] 38.4 % Normal 36.0-48.0 [facility] Comment on above: Performed By: #### C BC #### [facility] [address] [place] [address] Dr. Kwasi Roblero Hemoglobin (Bld) [Mass/Vol] 12.2 g/dL Normal 12.0-16.0 [facility] Comment on above: Performed By: #### C BC #### [facility] [address] [place] [address] Dr. Kwasi Roblero IG # 0.04 10e3/ul Critically high 0.00-0.03 [facility] Comment on above: Performed By: #### C BC #### [facility] [address] [place] [address] Dr. Kwasi Roblero IG % 0.3 % Normal 0.0-0.5 [facility] Comment on above: Performed By: #### C BC #### [facility] [address] [place] [address] Dr. Kwasi Roblero LYMPH # 2.3 103/ul Normal 1.2-3.8 [facility] Comment on above: Performed By: #### C BC #### [facility] [address] [place] [address] Dr. Kwasi Roblero Lymphocytes/100 WBC (Bld) 17.4 % Critically low 20.5-60.0 [facility] Comment on above: Performed By: #### C BC #### [facility] [address] [place] [address] Dr. Kwasi Roblero MANUAL DIFF REQ NO Normal [facility] Comment on above: Performed By: #### C BC #### [facility] [address] [place] [address] Dr. Kwasi Roblero MCH (RBC) [Entitic mass] 26.7 pg Normal 26.7-34.0 [facility] Comment on above: Performed By: #### C BC #### [facility] [address] [place] [address] Dr. Kwasi Roblero MCHC (RBC) [Mass/Vol] 31.8 g/dL Normal 29.9-35.2 [facility] Comment on above: Performed By: #### C BC #### [facility] [address] [place] [address] Dr. Kwasi Roblero MCV (RBC) [Entitic vol] 84.0 fL Normal 81.0-99.0 [facility] Comment on above: Performed By: #### C BC #### [facility] [address] [place] [address] Dr. Kwasi Roblero MONO # 0.8 103/ul Normal 0.3-0.8 [facility] Comment on above: Performed By: #### C BC #### [facility] [address] [place] [address] Dr. Kwasi Roblero Monocytes/100 WBC (Bld) 6.1 % Normal 1.7-12.0 [facility] Comment on above: Performed By: #### C BC #### [facility] [address] [place] [address] Dr. Kwasi Roblero NEUT # 9.9 103/ul Critically high 1.4-6.5 [facility] Comment on above: Performed By: #### C BC #### [facility] [address] [place] [address] Dr. Kwasi Roblero Neutrophils/100 WBC (Bld) 74.3 % Normal 43.0-75.0 [facility] Comment on above: Performed By: #### C BC #### [facility] [address] [place] [address] Dr. Kwasi Roblero Platelet mean volume (Bld) [Entitic vol] 10.5 fL Normal 9.5-13.5 [facility] Comment on above: Performed By: #### C BC #### [facility] [address] [place] [address] Dr. Kwasi Roblero PLT 235 103/ul Normal 150-450 [facility] Comment on above: Performed By: #### C BC #### [facility] [address] [place] [address] Dr. Kwasi Roblero RBC 4.57 106/ul Normal 4.20-5.40 [facility] Comment on above: Performed By: #### C BC #### [facility] [address] [place] [address] Dr. Kwasi Roblero WBC 13.4 103/ul Critically high 4.0-11.0 [facility] Comment on above: Performed By: #### C BC #### [facility] [address] [place] [address] Dr. Kwasi Roblero FERRITINon 11-18-2021 Ferritin [Mass/Vol] 36.0 ng/mL Normal 6.2-137.0 [facility] Comment on above: Performed By: #### I EDUARD FERR #### [facility] [address] [place] [address] Dr. Kwasi Roblero IRONon 11-18-2021 Iron [Mass/Vol] 36.0 ug/dL Critically low 37.0-170.0 [facility] Comment on above: Performed By: #### I EDUARD FERR #### [facility] [address] [place] [address] Dr. Kwasi Roblero PROF 14(COMP METB)on 022 Albumin [Mass/Vol] 3.9 g/dL Normal 3.4-5.0 [facility] Comment on above: Performed By: #### C MP #### [facility] [address] [place] [address] Dr. Kwasi Roblero Albumin/Globulin [Mass ratio] 1.0 {ratio} Normal [facility] Comment on above: Performed By: #### C MP #### [facility] [address] [place] [address] Dr. Kwasi Roblero ALP [Catalytic activity/Vol] 71 U/L Normal 46-116 [facility] Comment on above: Performed By: #### C MP #### [facility] [address] [place] [address] Dr. Kwasi Roblero ALT [Catalytic activity/Vol] 20 U/L Normal 14-59 [facility] Comment on above: Performed By: #### C MP #### [facility] [address] [place] [address] Dr. Kwasi Roblero Anion gap [Moles/Vol] 10.7 mmol/L Normal [facility] Comment on above: Performed By: #### C MP #### [facility] [address] [place] [address] Dr. Kwasi Roblero AST [Catalytic activity/Vol] 14 U/L Critically low 15-37 [facility] Comment on above: Performed By: #### C MP #### [facility] [address] [place] [address] Dr. Kwasi Roblero Bilirubin [Mass/Vol] 0.8 mg/dL Normal 0.2-1.3 [facility] Comment on above: Performed By: #### C MP #### [facility] [address] [place] [address] Dr. Kwasi Roblero Calcium [Mass/Vol] 8.9 mg/dL Normal 8.5-10.1 [facility] Comment on above: Performed By: #### C MP #### [facility] [address] [place] [address] Dr. Kwasi Roblero Chloride [Moles/Vol] 103 mmol/L Normal 98-107 [facility] Comment on above: Performed By: #### C MP #### [facility] [address] [address] [address] Kwasi Roblero CO2 [Moles/Vol] 31.2 mmol/L Critically high 22.0-30.0 [facility] Comment on above: Performed By: #### C MP #### [facility] [address] [place] [address] Dr. Kwasi Roblero Creatinine [Mass/Vol] 0.77 mg/dL Normal 0.52-1.04 [facility] Comment on above: Performed By: #### C MP #### [facility] [address] [place] [address] Dr. Kwasi Roblero EGFR-AF CYMRO >60 Normal >=[address] [facility] Comment on above: Performed By: #### C MP #### [facility] [address] [place] [address] Dr. Kwasi Roblero EGFR-NON AF CYMRO >60 Normal >=60 [facility] Comment on above: Performed By: #### C MP #### [facility] [address] [place] [address] Dr. Kwasi Roblero Globulin (S) [Mass/Vol] 4.1 g/dL Normal [facility] Comment on above: Performed By: #### C MP #### [facility] [address] [place] [address] Dr. Kwasi Roblero Glucose [Mass/Vol] 93 mg/dL Normal 74-106 [facility] Comment on above: Performed By: #### C MP #### [facility] [address] [place] [address] Dr. Kwasi Roblero Potassium [Moles/Vol] 3.9 mmol/L Normal 3.4-5.0 [facility] Comment on above: Performed By: #### C MP #### [facility] [address] [place] [address] Dr. Kwasi Roblero Protein [Mass/Vol] 8.0 g/dL Normal 6.1-8.2 [facility] Comment on above: Performed By: #### C MP #### [facility] [address] [address] [address] Kwasi Roblero Sodium [Moles/Vol] 141 mmol/L Normal 137-145 [facility] Comment on above: Performed By: #### C MP #### [facility] [address] [address] [address] Kwasi Roblero Urea nitrogen [Mass/Vol] 15.0 mg/dL Normal 7.0-18.0 [facility] Comment on above: Performed By: #### C MP #### [facility] [address] [address] [address] Kwasi Roblero Urea nitrogen/Creatinine [Mass ratio] 19.5 mg/mg Normal [facility] Comment on above: Performed By: #### C MP #### [facility] [address] [address] [address] Kwasi Roblero Consenton 07-27-2020 Consent [id number]:127 Normal [facility] Registrationon 07-27-2020 Registration [id number]:127 Normal [facility] Cult,Urineon 02-11-2018 Cult,Urine Specimen Description .URINE, MIDSTREAM Special Requests NOT REPORTED Culture NO SIGNIFICANT GROWTH Report Status FINAL 02/10/2018 Normal [facility] Comment on above: Performed By: #### U RC ####[address] [address] [facility] [place] [address] CBC with Diffon 02-10-2018 Blood morphology MODERATE Normal [facility] Comment on above: Result Comment: MICR OCYTOSIS Performed By: #### C DP, CMPX, LIP ####[facility] [place] [address] Abs. Basophil 0.00 k/uL Normal 0.0-0.2 [facility] Comment on above: Performed By: #### C DP, CMPX, LIP ####[facility] [place] [address] Abs.Neutrophil (Seg) 10.20 k/uL High 2.5-7.0 [facility] Comment on above: Performed By: #### C DP, CMPX, LIP ####[facility] [place] [address] Basophils/100 WBC Auto (Bld) 0 % Normal 0-2 [facility] Comment on above: Performed By: #### C DP, CMPX, LIP ####[facility] [place] [address] Eosinophils 0.00 10*3/uL Normal 0.0-0.4 [facility] Comment on above: Performed By: #### C DP, CMPX, LIP ####[facility] [place] [address] Eosinophils/100 leukocytes 0 % Normal 0-5 [facility] Comment on above: Performed By: #### C DP, CMPX, LIP ####[facility] [place] [address] Erythrocyte distribution width Auto Ratio (RBC) 16.5 % High 12.1-15.2 [facility] Comment on above: Performed By: #### C DP, CMPX, LIP ####[facility] [place] [address] Erythrocytes (RBC) 4.92 10*6/uL Normal 4.0-5.2 [facility] Comment on above: Performed By: #### C DP, CMPX, LIP ####[facility] [place] [address] Hematocrit (HCT) 32.7 % Low 36-46 [facility] Comment on above: Performed By: #### C DP, CMPX, LIP ####[facility] [place] [address] Hemoglobin mass conc (Bld) 10.4 g/dL Low 12.0-16.0 [facility] Comment on above: Performed By: #### C DP, CMPX, LIP ####[place] [address] [place] [address] Lymphocytes 1.00 10*3/uL Normal 1.0-4.8 [facility] Comment on above: Performed By: #### C DP, CMPX, LIP ####[place] [address] Replaced By [facility] [place] [address] Lymphocytes/100 leukocytes 8 % Low 15-40 [facility] Comment on above: Performed By: #### C DP, CMPX, LIP ####[address] [place] [address] MCH 21.1 pg Low 26-34 [facility] Comment on above: Performed By: #### C DP, CMPX, LIP ####[place] [address] [facility] [place] [address] MCHC mass conc (RBC) 31.8 g/dL Normal 31-37 [facility] Comment on above: Performed By: #### C DP, CMPX, LIP ####[facility] [facility] [place] [address] MCV 66.5 fL Low 80-100 [facility] Comment on above: Performed By: #### C DP, CMPX, LIP ####[place] [address] Replaced By [facility] [place] [address] Monocytes 1.10 10*3/uL High 0.0-1.0 [facility] Comment on above: Performed By: #### C DP, CMPX, LIP ####[address] [place] [address] Monocytes/100 leukocytes 9 % High 4-8 [facility] Comment on above: Performed By: #### C DP, CMPX, LIP ####[facility] [place] [address] Neutrophil (Seg) 83 % High 47-75 [facility] Comment on above: Performed By: #### C DP, CMPX, LIP ####[facility] [place] [address] Platelets 247 10*3/uL Normal 140-450 [facility] Comment on above: Performed By: #### C DP, CMPX, LIP ####[facility] [place] [address] WBC (Leukocytes) 12.3 10*3/uL High 3.5-11.0 [facility] Comment on above: Performed By: #### C DP, CMPX, LIP ####[facility] [facility] [address] [place] [address] Auto Diff Performed NOT REPORTED Normal [facility] Comment on above: Performed By: #### C DP, CMPX, LIP ####[facility] [facility] [address] [place] [address] Erythrocyte morphology NOT REPORTED Normal [facility] Comment on above: Performed By: #### C DP, CMPX, LIP ####[facility] [place] [address] Erythrocytes (RBC) NOT REPORTED Normal [facility] Comment on above: Performed By: #### C DP, CMPX, LIP ####[facility] [place] [address] Granulocytes/100 WBC (Bld) NOT REPORTED Normal 0.00-0.30 [facility] Comment on above: Performed By: #### C DP, CMPX, LIP ####[facility] [place] [address] Immature granulocytes #/vol (Bld) NOT REPORTED Normal 0 [facility] Comment on above: Performed By: #### C DP, CMPX, LIP ####[facility] [place] [address] Platelet mean volume (PMV) NOT REPORTED Normal 6.0-12.0 [facility] Comment on above: Performed By: #### C DP, CMPX, LIP ####[facility] [facility] [address] [place] [address] Platelets NOT REPORTED Normal [facility] Comment on above: Performed By: #### C DP, CMPX, LIP ####[facility] [facility] [address] [place] [address] WBC Morphology NOT REPORTED Normal [facility] Comment on above: Performed By: #### C DP, CMPX, LIP ####[facility] [facility] [address] [place] [address] CT ABDOMEN PELVIS W IV CONTR Rosalinda 02-10-2018 CT ABDOMEN PELVIS W IV CONTRAST CT ABDOMEN PELVIS W IV CONTRASTCLINICAL STATEMENT: Right flank and right lower quadrant pain COMPARISON: None. TECHNIQUE: CT examination of the abdomen and pelvis following the administration of Isovue-370, 75 mL intravenous contrast. ?Coronal and sagittal reformations were performed.Dose reduction techniques were achieved by using automated exposure control and/or adjustment of mA and/or kV according to patient size and/or use of iterative reconstruction technique.FINDINGS: Unremarkable lung bases.Nondilated gallbladder. Unremarkable liver, pancreas, spleen, and adrenals.There is heterogeneous enhancement of the right kidney with surrounding fat stranding and fluid, and mild right hydronephrosis but no hydroureter. There is no urolithiasis. Left kidney is normal. Uterus and ovaries are grossly unremarkable.Normal appendix. No acute bowel pathology. No free air. No free fluid. No enlarged lymph node. Major vessels are patent.No acute osseous finding.IMPRESSION: Findings are compatible with right pyelonephritis. There is also mild right hydronephrosis but no hydroureter, obstructing stone, or other obstructing etiology found. Close follow-up is recommended.Appendix is normal.Interpreted by:DANII Leungigned by:Rodney Zapata MD02/10/inal result Normal [facility] Comp Metabolic Pr/rfx MGon 0 02-10-2018 (cont.) Normal [facility] Comment on above: Result Comment: Aver age GFR for 20-29 years old: 116 mL/min/1.73sq mChronic Kidney Disease: <60 mL/min/1.73sq mKidney failure: <15 mL/min/1.73sq meGFR calculated using average adult body mass. Additional eGFR calculator available at:http://www.Anzhi.com/multiple_crcl_2011.htm Performed By: #### C DP, CMPX, LIP ####[address] [place] [address] Alanine aminotransferase (ALT) 14 U/L Normal 5-33 [facility] Comment on above: Performed By: #### C DP, CMPX, LIP ####[address] [place] [address] Albumin 3.9 g/dL Normal 3.5-5.2 [facility] Comment on above: Performed By: #### C DP, CMPX, LIP ####[address] [place] [address] Alkaline Phos 80 U/L Normal 35-104 [facility] Comment on above: Performed By: #### C DP, CMPX, LIP ####[address] [place] [address] Anion gap 11 mmol/L Normal 9-17 [facility] Comment on above: Performed By: #### C DP, CMPX, LIP ####[address] [place] [address] Aspartate aminotransferase (AST) 13 U/L Normal <32 [facility] Comment on above: Performed By: #### C DP, CMPX, LIP ####[place] [address] [facility] [place] [address] Bilirubin Ql (U) 1.14 mg/dL Normal 0.30-1.20 [facility] Comment on above: Performed By: #### C DP, CMPX, LIP ####[address] [place] [address] [facility] [place] [address] BUN/CRE Ratio 13 Normal 9-20 [facility] Comment on above: Performed By: #### C DP, CMPX, LIP ####[address] [place] [address] Calcium 8.9 mg/dL Normal 8.6-10.4 [facility] Comment on above: Performed By: #### C DP, CMPX, LIP ####[place] [address] Chloride 101 mmol/L Normal 98-107 [facility] Comment on above: Performed By: #### C DP, CMPX, LIP ####[address] [place] [address] CO2 27 mmol/L Normal 20-31 [facility] Comment on above: Performed By: #### C DP, CMPX, LIP ####[address] [place] [address] Creatinine 0.92 mg/dL High 0.50-0.90 [facility] Comment on above: Performed By: #### C DP, CMPX, LIP ####[address] [place] [address] eGFR (non-black) mL/min/{1.73_m2} Normal >60 [facility] Comment on above: Performed By: #### C DP, CMPX, LIP ####[facility] [place] [address] Glucose mass conc 119 mg/dL High 70-99 [facility] Comment on above: Performed By: #### C DP, CMPX, LIP ####[facility] [facility] [address] [place] [address] Potassium molar conc 3.5 mmol/L Low 3.7-5.3 [facility] Comment on above: Performed By: #### C DP, CMPX, LIP ####[facility] [facility] [place] [address] Protein 7.6 g/dL Normal 6.4-8.3 [facility] Comment on above: Performed By: #### C DP, CMPX, LIP ####[facility] [facility] [place] [address] Sodium 139 mmol/L Normal 135-144 [facility] Comment on above: Performed By: #### C DP, CMPX, LIP ####[facility] By [facility] [place] [address] Urea nitrogen 12 mg/dL Normal 6-20 [facility] Comment on above: Performed By: #### C DP, CMPX, LIP ####[facility] By [facility] [address] [id number] Albumin/Globulin Ratio NOT REPORTED Normal 1.0-2.5 [facility] Comment on above: Performed By: #### C DP, CMPX, LIP ####[facility] [place] [address] Staging: NOT REPORTED Normal [facility] Comment on above: Performed By: #### C DP, CMPX, LIP ####[facility] [place] [address] HCG, ,Urineon 02-10 HCG.beta subunit ( test) Ql (U) Negative Normal NEG [facility] Comment on above: Performed By: #### PRISCILA Will [facility] ####[facility] [place] [address] Lipaseon 02-10-2018 Lipase 17 U/L Normal 13-60 [facility] Comment on above: Performed By: #### C DP, CMPX, LIP ####[facility] [place] [address] Urinalysis, Routineon 2017 Acetaminophen mass conc Negative Normal NEG [facility] Comment on above: Performed By: #### [facility] ####[facility] [place] [address] Bilirubin (direct) Negative Normal NEG [facility] Comment on above: Performed By: #### [facility] ####[facility] [place] [address] Comment Normal [facility] Comment on above: Performed By: #### [facility] ####[facility] [place] [address] Hemoglobin mass conc (Bld) TRACE Abnormal NEG [facility] Comment on above: Performed By: #### [facility] ####[facility] [place] [address] Nitrite,Ur Negative Normal NEG [facility] Comment on above: Performed By: #### [facility] ####[facility] [place] [address] Turbidity CLEAR Normal CLEAR [facility] Comment on above: Performed By: #### [facility] ####[facility] [place] [address] Urine, color YELLOW Normal YEL [facility] Comment on above: Performed By: #### [facility] ####[facility] [place] [address] Urine, glucose presence Negative Normal NEG [facility] Comment on above: Performed By: #### [facility] ####[facility] [place] [address] Urine, leukocyte esterase presence 2+ Abnormal NEG [facility] Comment on above: Performed By: #### Kb Walsh [facility] ####[facility] [place] [address] Urine, pH 6.0 [pH] Normal 5.0-8.0 [facility] Comment on above: Performed By: #### Kb Walsh [facility] ####[facility] [place] [address] Urine, protein presence 2+ Abnormal NEG [facility] Comment on above: Performed By: #### Kb Walsh [facility] ####[facility] [place] [address] Urine, specific gravity 1.010 Normal 1.005-1.030 [facility] Comment on above: Performed By: #### Kb Walsh [facility] ####[facility] [place] [address] Urobilinogen,Ur 4 mg/dL Abnormal NORM [facility] Comment on above: Performed By: #### Kb Walsh [facility] ####[facility] [place] [address] Urinalysis,Microon 8 ----- Normal [facility] Comment on above: Performed By: #### [facility] ####[facility] [place] [address] Mucus Strands RARE Abnormal NONE [facility] Comment on above: Performed By: #### [facility] ####[facility] [place] [address] Urine WBC's 10 TO 20 Normal 0 [facility] Comment on above: Performed By: #### [facility] ####[facility] [place] [address] Urine, erythrocytes 5 TO 10 Normal 0-2 [facility] Comment on above: Performed By: #### [facility] ####[facility] [place] [address] Epithelial, Renal NOT REPORTED Normal 0 [facility] Comment on above: Performed By: #### [facility] ####[facility] [place] [address] Other Observations NOT REPORTED [facility] Comment on above: Performed By: #### [facility] ####[facility] [place] [address] Trichomonas NOT REPORTED Normal NONE [facility] Comment on above: Performed By: #### [facility]A Will [facility] ####[facility] [place] [address] Urine, amorphous sediment presence in sediment NOT REPORTED Normal NONE [facility] Comment on above: Performed By: #### PRISCILA Will KATI ####[facility] [place] [address] Urine, bacteria in sediment NOT REPORTED Normal NONE [facility] Comment on above: Performed By: #### [facility] ####[facility] [place] [address] Urine, casts in sediment NOT REPORTED Normal [facility] Comment on above: Performed By: #### [facility] ####[facility] [place] [address] Urine, crystals in sediment NOT REPORTED Normal NONE [facility] Comment on above: Performed By: #### [facility] ####[facility] [place] [address] Urine, epithelial cells in sediment NOT REPORTED Normal [facility] Comment on above: Performed By: #### [facility] ####[facility] [place] [address] Urine, yeast presence in sediment NOT REPORTED Normal NONE [facility] Comment on above: Performed By: #### [facility] ####[facility] [place] [address] Vital Signs Date Time Vital Sign Value Performing Clinician Facility 07-17-2022 10:50-0500 Body height 167.64 cm Emilee Khan Other [facility] Other 07-17-2022 10:50-0500 Body mass index (BMI) [Ratio] 29.05 kg/m2 Emilee Khan Other [facility] Other 07-17-2022 10:50-0500 Body temperature 97.3 [degF] Emilee Khan Other [facility] Other 07-17-2022 10:50-0500 Body weight 81.65 kg Emilee Khan Other [facility] Other 07-17-2022 10:50-0500 Diastolic blood pressure 83 mm[Hg] Emilee Khan Other [facility] Other 07-17-2022 10:50-0500 Respiratory rate 18 /min Emilee Khan Other [facility] Other 07-17-2022 10:50-0500 SaO2% (BldA) [Mass fraction] 100 % Emilee Khan Other [facility] Other 07-17-2022 10:50-0500 Systolic blood pressure 136 mm[Hg] Emilee Khan Other [facility] Other Encounters Encounter Date Encounter Type Care Provider Facility Start: 09-19-2022 End: 09-20-[address] GRACIE KAY Facility:[facility] Start: 09-02-2022 End: 09-03-[address] GRACIE KAY Facility:[facility] Start: 08-27-2022 End: 08-28-[address] GRACIE KAY Facility:[facility] Start: 08-25-2022 End: 08-26-[address] GRACIE KAY Facility:[facility] Start: 08-25-2022 End: 08-26-[address] GRACIE KAY Facility:[facility] Start: 07-22-2022 End: 07-22-2022 ambulatory Emilee Khan Other [facility] Other Start: 07-22-2022 Telephone encounter Emilee Khan [facility] [address] Start: 07-17-2022 Office outpatient vi sit 15 minutes Emilee Khan [facility] [place] Start: 07-17-2022 End: 07-17-2022 ambulatory Emilee Khan [email or web address] Other Start: 07-17-2022 End: 07-17-2022 Departed Referred [employer] WORK[employer] Emilee Khan Work Phone: [facility] [address] [place] Start: 05-06-2022 End: 05-07-[address] GRACIE KAY Facility:[facility] Start: 05-02-[address] GRACIE KAY Facility :[facility] Start: 04-15-2022 End: 04-16-[address] GRACIE KAY Facility:[facility] Start: 03-24-2022 End: 03-24-[address] JACKIE SCOTT Facility:[facility] Start: 11-18-2021 End: 11-19-[address] GRACIE KAY Facility:[facility] Start: 02-10-2018 End: 02-10-2018 Emergency department patient visit [facility]IE M [facility] Procedures Date Procedure Procedure Detail Performing Clinician Start: 02-10-2018 Ct abdomen & pelvis w/contrast material GRACIE HOY Start: 02-10-2018 Assay of lipase GRACIE HOPari Start: 02-10-2018 Blood count complete auto&auto difrntl wbc GRACIE HOY Start: 02-10-2018 COMPREHENSIVE METABO LIC PANEL W/ REFLEX TO MG FOR LOW K GRACIE HOY Start: 02-10-2018 Culture bacterial qu anttative colony count urine GRACIE HOY Start: 02-10-2018 Microscopic urinalysis GRACIE HOY Start: 02-10-2018 Urine test visual color cmprsn meths GRACIE HOY Start: 02-10-2018 Urnls dip stick/tabl et rgnt auto w/o microscopy GRACIE HOY Plan of Treatment Date Care Activity Detail Author Chlamydia trachomati s DNA [Presence] in Unspecified specimen by MACRINA with probe detection [facility] Work Phone: Neisseria gonorrhoea e DNA [Presence] in Unspecified specimen by MACRINA with probe detection [facility] Work Phone: Trichomonas vaginali s DNA [Presence] in Unspecified specimen by MACRINA with probe detection [facility] Work Phone: Payers Date Payer Category Payer Unknown [id number] 2.16.84 [id number] 1994 Unknown [id number] 2.16.84 [id number] 1994 Unknown [id number] 2.16.84 [id number] 1994 Unknown [id number] 2.16.84 [id number] 1994 Unknown [id number] 2.16.84 [id number] 1994 Unknown [id number] 2.16.84 [id number] 1994 Unknown [id number] 2.16.84 [id number] 1994 Unknown [id number] 2.16.84 [id number] 1994 Unknown [id number] 2.16.84 [id number] 1994 Unknown [id number] 2.16.84 [id number] 1959 Self-pay 1960 Unknown [id number] 1960 Unknown [id number] 2.1 [id number] Medicaid [employer] [id number] Unknown [id number] 2.16.8 [id number] Social History Date Type Detail Facility Sex Assigned At [facility] Other Start: 1995 Sex Assigned At Female F [facility] Evaluation note 07-17-2022 Note Date & Type Note Facility 07-17-2022 Evaluation note Encounter Date Diagnosis Assessment Notes Jul, High risk sexual behavior, unspecified type (ICD-10 - Z72.51) Discussed diagnosis with patient. Will treat today prophylactically . Advised that STD panel was sent out today, will call with resutls in 2-5 days. Advised to abstain from sexual intercourse until results are known. Advised at time of results, treatment plan may change. Follow up with PCP or INSPECTOR CRYSTAL for regular health maintenance, UC as needed. Patient verbalizes understanding and is agreeable with treatment plan [facility] Other Evaluation note Note Date & Type Note Facility Evaluation note No assessment information availa ble [facility] Work Phone: Evaluation note Note Date & Type Note Facility Evaluation note No Information [facility] Other History general Narrative - Reported Note Date & Type Note Facility History general Narrative - Reported Type Medical History narcolepsy [facility] Other Summary Purpose Family History No Family History Records FoundNo Family History Records FoundNo Family History Records FoundNo Family History Records Found Advance Directives No Advanced Directives Records FoundNo Advanced Directives Records FoundNo Advanced Directives Records FoundNo Advanced Directives Records Found Chief Complaint and Reason for Visit Chief Complaint High risk sexual beh avior, unspecified type Additional Source Comments INFORMATION SOURCE (unrecogn ized section and content) DATE CREATED AUTHOR 02/11/2018 Rosy trujillocarlos DATE CREATED AUTHOR AUTHOR'S ORGANIZ ATION 07/28/2020 [facility] DATE CREATED AUTHOR AUTHOR'S ORGANIZ ATION 07/22/2022 [facility] DATE CREATED AUTHOR AUTHOR'S ORGANIZ ATION 2022 [facility] REASON FOR VISIT (unrecogniz ed section and content) STI TestingNo Information Care Teams (unrecognized sec tion and content) Team Status: Inactive Member Role Status Dates Emilee Khan APRN Attending Provider Active Goals (unrecognized section and content) Goals may be documented in a n alternate section FOR RECORDS PERTAINING TO PATIENTS WHO ARE OR HAVE BEEN ENROLLED IN A CHEMICAL DEPENDENCY/SUBSTANCEABUSE PROGRAM, SOME INFORMATION MAY BE OMITTED. This clinical summary was aggregated from multiple sources. Caution should be exercised in using it in the provision of clinical care. This summary normalizes information from multiple sources, and as a consequence, information in this document may materially change the coding, format and clinical context of patient data. In addition, data may be omitted in some cases. CLINICAL DECISIONS SHOULD BE BASED ON THE PRIMARY CLINICAL RECORDS. [facility]. provides no warranty or guarantee of the accuracy or completeness of information in this document.
--- NOTE | 2023-10-07 10:35 | MR_ITS ---
The [address] [address] Patient Name: ILIR DANIEL MRN: [id number] date: 1995 Sex: F Assigned Patient Location: MRI Current Patient Location: MRI Accession/Order Number: [id number] Exam Date: 10/07/2023 10:42 Report Date: 10/07/2023 11:49 At the request of: GRACIE KAY Procedure: MR head/brain wo con EXAMINATION: MR head/brain wo con HISTORY: Headache G44.059 COMPARISON: No relevant comparison available. TECHNIQUE: A variety of imaging planes and parameters were utilized for visualization of suspected pathology. Images were performed without contrast. FINDINGS: CEREBRUM: No edema, hemorrhage, mass, acute infarction, or atrophy. CEREBELLUM: No edema, hemorrhage, mass, acute infarction, or atrophy. No cerebellar tonsillar ectopia. BRAINSTEM: No edema, hemorrhage, mass, acute infarction, or atrophy. CSF SPACES: Ventricles, cisterns, and sulci are appropriate for age. No hydrocephalus, subarachnoid hemorrhage, or mass. SKULL: No mass or other significant visible lesion. SINUSES: Limited views demonstrate no significant mucosal thickening or fluid. ORBITS: Limited views are unremarkable. OTHER: Negative. MR/MR head/brain wo con IMPRESSION: 1. Normal MRI appearance of the brain. Electronically authenticated by: JOSE ROWLAND Date: 10/07/2023 11:49
== END 2023-10-07 10:30 | disposition home or self-care (01) ==
LOC: MRI 10:30
PROVIDERS: PCP Family Medicine; Visit Provider Family Medicine
DX: G44.059 Short lasting unilateral neuralgiform headache with conjunctival injection and tearing (SUNCT), not intractable (principal)
CPT/HCPCS: 70551